=== PATIENT | female | born 1975 | race Caucasian/White ===

== ENCOUNTER 2016-09-16 10:24 | Inpatient (IN) | payer MEDICAID, SELFPAY ==
--- NOTE | 2016-09-16 11:09 | EDM.PDOC ---
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 She is nauseated but not vomiting, has pain with breathing but is not short of breath. No fevers or chills. No previous similar pains and no history of surgeries. She went over to the clinic to be evaluated and they sent her to the emergency room because she was "in so much pain". She has a very good assistant produce manager who was present with the patient for 10 minutes but had to leave for her own clinic appointment. Onset: Gradual (Pain developed over the past 12-24 hours) Location: Reports: Chest, Abdomen (Right upper quadrant abdomen and right lower anterior chest) Quality: Reports: Ache, Pressure, Sharp Severity: Moderate Worsens with: Reports: Movement (Hurts to move and hurts to take a deep breath) Associated Symptoms: Denies: Fever/Chills, Headaches, Loss of Appetite, Shortness of Breath (She is not short of breath but has pain with breathing) Right Breast Pain Score (Numeric/FACES): 10 Right Chest Pain Score (Numeric/FACES): 10 - Related Data Allergies Allergy/AdvReac Type Severity Reaction Status Date / Time No Known Allergies Allergy Verified 07/01/13 23:26 Home Meds: Home Meds NK [No Known Home Meds] 09/16/16 [History] Past Medical History - Past Health History Medical/Surgical History: Denies Medical/Surgical History Social & Family History - Recreational Drug Use Recreational Drug Use: No ED ROS GENERAL - Review of Systems Review Of Systems: See Below Constitutional: Denies: Fever, Chills HEENT: Reports: No Symptoms Respiratory: Reports: Pleuritic Chest Pain (Right anterior chest and upper right abdomen) Cardiovascular: Denies: Palpitations GI/Abdominal: Reports: Abdominal Pain, Nausea. Denies: Vomiting : Reports: No Symptoms Skin: Reports: No Symptoms Neurological: Reports: No Symptoms Psychiatric: Reports: No Symptoms ED EXAM, GENERAL - Physical Exam Exam: See Below Exam Limited By: Language Barrier General Appearance: Alert, No Apparent Distress (Patient is not distressed but does look uncomfortable) Respiratory/Chest: No Respiratory Distress, Lungs Clear, Decreased Breath Sounds (She did have some mild decreased breath sounds at the right base posteriorly.) Cardiovascular: Regular Rate, Rhythm GI/Abdominal: Tender (Patient reacts with tenderness to palpation of the right upper quadrant, much less pain with palpation of the chest wall) Neurological: Alert, Oriented Skin Exam: Warm, Dry, No Rash (There is no abnormality of the skin overlying the painful area) Course - Vital Signs Last Recorded V/S: Last Vital Signs Temp 99.1 F 09/16/16 14:52 Pulse 99 09/16/16 14:52 Resp 24 H 09/16/16 14:52 BP 111/64 09/16/16 14:52 Pulse Ox 91 L 09/16/16 14:52 - Orders/Labs/Meds Orders: Active Orders 24 hr Category Date Time Status CULTURE BLOOD [BC] Urgent Lab 09/16/16 12:25 Received CULTURE BLOOD [BC] Urgent Lab 09/16/16 12:30 Received Blood Culture x2 Reflex Set [OM.PC] Urgent Oth 09/16/16 12:20 Ordered Medication Orders Acetaminophen (Tylenol) 650 mg PO Q4H PRN PRN Reason: Pain (Mild 1-3)/fever Last Admin: 09/16/16 15:55 Dose: 650 mg Albuterol (Proventil Neb Soln) 2.5 mg NEB Q4H PRN PRN Reason: Shortness Of Breath/wheezing Docusate Sodium (Colace) 100 mg PO BID PRN PRN Reason: Constipation Azithromycin 500 mg/ Sodium (Chloride) 250 mls @ 250 mls/hr IV Q24H ARCELIA Last Admin: 09/16/16 15:56 Dose: 250 mls/hr Sodium Chloride (Normal Saline) 1,000 mls @ 125 mls/hr IV ASDIRECTED ARCELIA Ceftriaxone Sodium 1 gm/ (Sodium Chloride) 50 mls @ 100 mls/hr IV Q24H ARCLEIA Magnesium Hydroxide (Milk Of Magnesia) 30 ml PO Q12H PRN PRN Reason: Constipation Polyethylene Glycol (Miralax) 17 gm PO DAILY PRN PRN Reason: Constipation Sodium Chloride (Saline Flush) 10 ml FLUSH ASDIRECTED PRN PRN Reason: Keep Vein Open Labs: Laboratory Tests 09/16/16 09/16/16 09/16/16 Range/Units 11:02 11:02 12:30 WBC 21.9 H (4.5-11.0) K/uL RBC 3.81 (3.30-5.50) M/uL Hgb 11.1 L (12.0-15.0) g/dL Hct 32.9 L (36.0-48.0) % MCV 86 (80-98) fL MCH 29 (27-31) pg MCHC 34 (32-36) % Plt Count 260 (150-400) K/uL Add Manual Diff Yes Neutrophils % (Manual) 73 H (36-66) % Band Neutrophils % 18 H (5-11) % Lymphocytes % (Manual) 5 L (24-44) % Monocytes % (Manual) 4 (2-6) % Sodium 133 L (140-148) mmol/L Potassium 2.9 L* (3.6-5.2) mmol/L Chloride 100 (100-108) mmol/L Carbon Dioxide 22 (21-32) mmol/L Anion Gap 13.9 (5.0-14.0) mmol/L BUN 7 (7-18) mg/dL Creatinine 0.5 L (0.6-1.0) mg/dL Est Cr Clr Drug Dosing 108.50 mL/min Estimated GFR (MDRD) > 60 (>60) Glucose 112 H (74-106) mg/dL Lactic Acid 1.5 (0.4-2.0) mmol/L Calcium 8.1 L (8.5-10.1) mg/dL Total Bilirubin 0.9 (0.2-1.0) mg/dL AST 11 L (15-37) U/L ALT 9 L (12-78) U/L Alkaline Phosphatase 82 (46-116) U/L Total Protein 7.3 (6.4-8.2) g/dL Albumin 2.5 L (3.4-5.0) g/dL Globulin 4.8 H (2.3-3.5) g/dL Albumin/Globulin Ratio 0.5 L (1.2-2.2) Lipase 49 L (73-393) U/L Meds: Medications Generic Name Dose Route Start Last Admin Trade Name Freq PRN Reason Stop Dose Admin Acetaminophen 650 mg 09/16/16 15:03 09/16/16 15:55 Tylenol PO 650 mg Q4H PRN Administration Pain (Mild 1-3)/fever Albuterol 2.5 mg 09/16/16 15:03 Proventil Neb Soln NEB Q4H PRN Shortness Of Breath/wheezing Docusate Sodium 100 mg 09/16/16 15:03 Colace PO BID PRN Constipation Azithromycin 500 mg/ Sodium 250 mls @ 250 mls/hr 09/16/16 16:00 09/16/16 15: 56 Chloride IV 250 mls/hr Q24H ARCELIA Administration Sodium Chloride 1,000 mls @ 125 mls/hr 09/16/16 15:03 Normal Saline IV ASDIRECTED ARCELIA Ceftriaxone Sodium 1 gm/ 50 mls @ 100 mls/hr 09/17/16 14:00 Sodium Chloride IV Q24H ARCELIA Magnesium Hydroxide 30 ml 09/16/16 15:03 Milk Of Magnesia PO Q12H PRN Constipation Polyethylene Glycol 17 gm 09/16/16 15:03 Miralax PO DAILY PRN Constipation Sodium Chloride 10 ml 09/16/16 15:03 Saline Flush FLUSH ASDIRECTED PRN Keep Vein Open Discontinued Medications Generic Name Dose Route Start Last Admin Trade Name Freq PRN Reason Stop Dose Admin Hydromorphone HCl 0.5 mg 09/16/16 14:12 09/16/16 14:16 Dilaudid IVPUSH 09/16/16 14:13 0.5 mg ONETIME ONE Administration Sodium Chloride 1,000 mls @ 200 mls/hr 09/16/16 12:15 09/16/16 12:22 Normal Saline IV 200 mls/hr ASDIRECTED ARCELIA Administration Ceftriaxone Sodium 2 gm/ 50 mls @ 100 mls/hr 09/16/16 13:00 09/16/16 13:12 Sodium Chloride IV 09/16/16 13:29 100 mls/hr ONETIME ONE Administration - Re-Assessments/Exams Free Text/Narrative Re-Assessment/Exam: 09/16/16 11:08 CBC, lipase, CMP was obtained and an ultrasound of the right upper quadrant will likely be necessary. 09/16/16 11:43 Lipase was normal, white count was elevated at 22,000, CMP was generally unremarkable other than a low potassium at 2.9. The avionics technician felt her pain was more in the flank area, and had a negative Ness sign. Patient was then sent for a shielded two-view chest x-ray due to the . Two-view chest x-ray showed almost complete opacification of the right middle lobe. An IV was started and the hospitalist will be consulted for possible admission. 09/16/16 13:01 Lactic acid was drawn and was normal at 1.5, blood cultures were also obtained. Using Doppler a normal sounding heart tone was obtained, and repeat vitals were reassuring with a normal pulse and blood pressure. Dr. Verde agreed to accept the patient as an inpatient for treatment of pneumonia. 2 g of Rocephin was started. Departure - Departure Time of Disposition: 14:31 Disposition: Admitted As Inpatient 68 Condition: fair Clinical Impression: Pneumonia, Hypokalemia, Intrauterine - Discharge Information - My Orders Last 24 Hours: My Active Orders 09/16/16 12:20 Blood Culture x2 Reflex Set [OM.PC] Urgent 09/16/16 12:25 CULTURE BLOOD [BC] Urgent 09/16/16 12:30 CULTURE BLOOD [BC] Urgent - Assessment/Plan Last 24 Hours: My Active Orders 09/16/16 12:20 Blood Culture x2 Reflex Set [OM.PC] Urgent 09/16/16 12:25 CULTURE BLOOD [BC] Urgent 09/16/16 12:30 CULTURE BLOOD [BC] Urgent
--- NOTE | 2016-09-16 12:04 | CR ---
Heart size within normal limits. Left lung clear. Dense consolidative change within the right lower lobe with air bronchograms indicative of right lower lobe pneumonia. Findings discussed with Dr. Maricel clay.
[2016-09-16] MEDS ORDERED: Sodium Chloride 0.9% 1,000 ML IV SCH (12:15)
[2016-09-16] MEDS ORDERED: cefTRIAXone 2 GM in Sodium Chloride 0.9% 50 ML IV ONE (13:00)
--- NOTE | 2016-09-16 13:29 | US ---
Ultrasound abdomen Limited. Findings: Findings: Liver is homogeneous. Gallbladder 0.5 cm. Negative sonographic Ness sign. No s tones. No wall thickening. Common bile duct within normal limits. Pancreas where visualized is unrem arkable. Right kidney 11.6 cm. No hydronephrosis. No hydronephrosis. IVC was not well visualized. No ascites fluid impression: 1. Unremarkable right upper quadrant ultrasound
[2016-09-16] MEDS ORDERED: HYDROmorphone 0.5 MG/0.5 ML Syringe IVPUSH ONE (14:12)
[2016-09-16] MEDS ORDERED: Magnesium Hydroxide 400 MG/5 ML Susp 30 ML Cup PO PRN (15:03)
[2016-09-16] MEDS ORDERED: Albuterol 0.083% 2.5 MG/3 ML Neb Soln NEB PRN (15:03)
[2016-09-16] MEDS ORDERED: Docusate Sodium 100 MG Cap PO PRN (15:03)
[2016-09-16] MEDS ORDERED: Polyethylene Glycol 3350 Powder 17 GM Packet PO PRN (15:03)
[2016-09-16] MEDS ORDERED: Sodium Chloride 0.9% 10 ML Syringe FLUSH PRN (15:03)
[2016-09-16] MEDS: Acetaminophen 325 MG Tab PO PRN (15:55)
[2016-09-16] MEDS: Azithromycin 500 MG in Sodium Chloride 0.9% 250 ML IV SCH (15:56)
[2016-09-16] MEDS ORDERED: Potassium Chloride 40 MEQ in Premix Bag 1 BAG IV ONE (16:26)
[2016-09-16] MEDS ORDERED: Potassium Chloride 20 MEQ Tab.ER PO ONE (17:00)
[2016-09-16] MEDS: HYDROmorphone 0.5 MG/0.5 ML Syringe IVPUSH PRN ×3 (17:03→23:31)
[2016-09-16] MEDS: Potassium Chloride 20 MEQ, Lidocaine 1% 2 ML in Sodium Chloride 0.9% 100 ML IV SCH ×2 (17:37→20:08)
[2016-09-16] MEDS: Sodium Chloride 0.9% 1,000 ML IV SCH (17:37)
--- NOTE | 2016-09-16 19:00 | PCM.HP ---
H&P History of Present Illness - General Date of Service: 09/16/16 Admit Problem/Dx: Admission Diagnosis/Problem Admission Diagnosis/Problem Pneumonia Source of Information: Patient, Provider, RN Notes Reviewed - History of Present Illness Initial Comments - Free Text/Narative: This patient is a 41-year-old woman who is admitted through the emergency department for further evaluation and management of right lung pneumonia. She' s had recent symptoms of increased shortness of breath as well as fairly severe right chest pleuritic pain. On evaluation emergency room department she has an obvious infiltrate in the right middle lobe with an elevated white blood cell count. Lactic acid level is normal, no other evidence of significant sepsis. Right Breast Pain Score (Numeric/FACES): 10 Right Chest Pain Score (Numeric/FACES): 10 - Related Data Allergies/Adverse Reactions: Allergies Allergy/AdvReac Type Severity Reaction Status Date / Time No Known Allergies Allergy Verified 07/01/13 23:26 Home Medications: Home Meds NK [No Known Home Meds] 09/16/16 [History] Past Medical History - Past Health History Medical/Surgical History: Denies Medical/Surgical History Social & Family History - Tobacco Use Smoking Status *Q: Unknown Ever Smoked - Caffeine Use Caffeine Use: Reports: None - Recreational Drug Use Recreational Drug Use: No H&P Review of Systems - Review of Systems: Review Of Systems: See Below HEENT: Reports: No Symptoms Pulmonary: Reports: Shortness of Breath, Pleuritic Chest Pain, Cough. Denies: Wheezing, Sputum, Hemoptysis Cardiovascular: Reports: No Symptoms Gastrointestinal: Reports: No Symptoms Genitourinary: Reports: No Symptoms Musculoskeletal: Reports: No Symptoms Skin: Reports: No Symptoms Psychiatric: Reports: No Symptoms Neurological: Reports: No Symptoms Hematologic/Lymphatic: Reports: No Symptoms Immunologic: Reports: No Symptoms Exam - Exam Exam: See Below - Vital Signs Vital Signs: Last Vital Signs Temp 97.9 F 09/16/16 18:12 Pulse 100 09/16/16 18:12 Resp 18 09/16/16 18:12 BP 110/57 L 09/16/16 18:12 Pulse Ox 93 L 09/16/16 18:12 Weight: 143 lb 8.335 oz - Exam Quality Assessment: DVT Prophylaxis General: Alert, Oriented, Cooperative, Moderate Distress HEENT: Conjunctiva Clear, Hearing Intact, Mucosa Moist & [place], Nares Patent, Normal Nasal Septum, Posterior Pharynx Clear, Pupils Equal, Pupils Reactive Neck: Supple, Trachea Midline, +2 Carotid Pulse wo Bruit Lungs: Decreased Breath Sounds, Rales, Rhonchi. No: Crackles, Rub, Stridor, Wheezing Cardiovascular: Regular Rate, Regular Rhythm, Normal S1, Normal S2 Abdomen: Normal Bowel Sounds, Soft Back Exam: Normal Inspection, Full Range of Motion, NT Extremities: 3, Normal Inspection, 10 Skin: Warm, Dry, Intact Neurological: Cranial Nerves Intact, Strength Equal Bilateral, Normal Tone, Sensation Intact. No: Focal Deficit Neuro Extensive - Mental Status: Alert, Oriented x3, Normal Mood/Affect, Normal Cognition, Memory Intact - Patient Data Result Diagrams: 09/16/16 11:02 09/16/16 11:02 *Q Meaningful Use (ADM) - VTE *Q VTE Criteria *Q: - VTE Risk Assess *Q Each Risk Factor Represents 1 Point: or , Less than 1 Month Total Score 1 Point Risk Factors: 1 Each Risk Factor Represents 2 Points: None Total Score 2 Point Risk Factors: 0 Each Risk Factor Represents 3 Points: None Total Score 3 Point Risk Factors: 0 Each Risk Factor Represents 5 Points: None Total Score 5 Point Risk Factors: 0 Venous Thromboembolism Risk Factor Score *Q: 1 - Stroke *Q Stroke Criteria *Q: - AMI *Q AMI Criteria *Q: Problem List Initiated/Reviewed/Updated: Yes Orders Last 24hrs: Active Orders 24 hr Category Date Time Status Intake and Output [RC] QSHIFT Care 09/16/16 15:03 Active Notify Provider Vital Signs [RC] ASDIRECTED Care 09/16/16 15:03 Active Oxygen Therapy [RC] PRN Care 09/16/16 15:03 Active Peripheral IV Care [RC] . DIRECTED Care 09/16/16 15:03 Active RT Aerosol Therapy [RC] ASDIRECTED Care 09/16/16 15:03 Active Up With Assistance [RC] ASDIRECTED Care 09/16/16 15:03 Active VTE/DVT Education [RC] Per Unit Routine Care 09/16/16 15:03 Active Vital Signs [RC] Q4H Care 09/16/16 15:03 Active Regular Diet [DIET] Diet 09/16/16 Lunch Active BASIC METABOLIC PANEL,BMP [CHEM] AM Lab 09/17/16 05:11 Ordered CBC WITH AUTO DIFF [HEME] AM Lab 09/17/16 05:11 Ordered CULTURE RESPIRATORY + SMEAR [RM] Stat Lab 09/16/16 15:03 Uncollected Acetaminophen [Tylenol] Med 09/16/16 15:03 Active 650 mg PO Q4H PRN Albuterol [Proventil Neb Soln] Med 09/16/16 15:03 Active 2.5 mg NEB Q4H PRN Azithromycin [Zithromax] 500 mg Med 09/16/16 16:00 Active Sodium Chloride 0.9% [Normal Saline] 250 ml IV Q24H Docusate Sodium [Colace] Med 09/16/16 15:03 Active 100 mg PO BID PRN HYDROmorphone [Dilaudid] Med 09/16/16 16:24 Active 0.5 mg IVPUSH Q2H PRN Magnesium Hydroxide [Milk of Magnesia] Med 09/16/16 15:03 Active 30 ml PO Q12H PRN Polyethylene Glycol 3350 [MiraLAX] Med 09/16/16 15:03 Active 17 gm PO DAILY PRN Potassium Chloride 20 meq Med 09/16/16 17:00 Active Lidocaine 1% [Xylocaine 1%] 2 ml Sodium Chloride 0.9% [Normal Saline] 100 ml IV Q2H Sodium Chloride 0.9% [Normal Saline] 1,000 ml Med 09/16/16 15:03 Active IV ASDIRECTED Sodium Chloride 0.9% [Saline Flush] Med 09/16/16 15:03 Active 10 ml FLUSH ASDIRECTED PRN cefTRIAXone [Rocephin] 1 gm Med 09/17/16 14:00 Active Sodium Chloride 0.9% [Normal Saline] 50 ml IV Q24H Blood Culture x2 Reflex Set [OM.PC] Urgent Oth 09/16/16 15:03 Ordered Doppler Heart Tones [WOMSER] Routine Oth 09/16/16 18:53 Ordered Peripheral IV Insertion Adult [OM.PC] Routine Oth 09/16/16 15:03 Ordered Sequential Compression Device [OM.PC] Per Unit Routine Oth 09/16/16 15:03 Ordered Resuscitation Status Routine Resus Stat 09/16/16 13:26 Ordered Medication Orders Acetaminophen (Tylenol) 650 mg PO Q4H PRN PRN Reason: Pain (Mild 1-3)/fever Last Admin: 09/16/16 15:55 Dose: 650 mg Albuterol (Proventil Neb Soln) 2.5 mg NEB Q4H PRN PRN Reason: Shortness Of Breath/wheezing Docusate Sodium (Colace) 100 mg PO BID PRN PRN Reason: Constipation Hydromorphone HCl (Dilaudid) 0.5 mg IVPUSH Q2H PRN PRN Reason: Pain Last Admin: 09/16/16 17:03 Dose: 0.5 mg Azithromycin 500 mg/ Sodium (Chloride) 250 mls @ 250 mls/hr IV Q24H ARCELIA Last Admin: 09/16/16 15:56 Dose: 250 mls/hr Sodium Chloride (Normal Saline) 1,000 mls @ 125 mls/hr IV ASDIRECTED ARCELIA Last Admin: 09/16/16 17:37 Dose: 125 mls/hr Ceftriaxone Sodium 1 gm/ (Sodium Chloride) 50 mls @ 100 mls/hr IV Q24H ARCELIA Potassium Chloride 20 meq/Lidocaine HCl 2 ml/ Sodium Chloride 112 mls @ 56 mls/ hr IV Q2H ARCELIA Stop: 09/16/16 20:59 Last Admin: 09/16/16 17:37 Dose: 56 mls/hr Magnesium Hydroxide (Milk Of Magnesia) 30 ml PO Q12H PRN PRN Reason: Constipation Polyethylene Glycol (Miralax) 17 gm PO DAILY PRN PRN Reason: Constipation Sodium Chloride (Saline Flush) 10 ml FLUSH ASDIRECTED PRN PRN Reason: Keep Vein Open Assessment/Plan Comment:: ASSESSMENT AND PLAN RIGHT LUNG PNEUMONIA-obvious infiltrate on chest x-ray with elevation in white blood cell count. Normal lactic acid level, initial heart rate and blood pressure were borderline but have improved with IV fluids. -Blood and sputum culture pending -IV fluids for hydration -Supplemental oxygen as needed -IV pain medication as needed for pleuritic pain -IV antibiotic therapy using Rocephin and azithromycin. 4 MONTHS- heart tones were checked in the emergency department and are within normal range -Monitor heart tones regularly during hospital stay -Consult obstetrical service for any related abnormalities MAINTENANCE ISSUES -DVT prophylaxis; SCUDs -GI prophylaxis; not required -Gracia catheter; not indicated -Nutrition; regular diet -Nicotine dependence; not required CODE STATUS-FULL CODE ADMISSION STATUS-patient will be admitted to inpatient status, expect at least a 2 night hospital stay for evaluation and management of problems as outlined above. At the time of this admission I do not reasonably expected evaluation and management of this problem will require more than a 96 hour hospital stay. DISPOSITION-anticipate discharge to home after the hospital stay. PRIMARY CARE PROVIDER-Jackie Colbert
[2016-09-17] MEDS: Acetaminophen 325 MG Tab PO PRN ×3 (01:48→20:36)
[2016-09-17] MEDS: Sodium Chloride 0.9% 1,000 ML IV SCH ×2 (01:53→12:42)
[2016-09-17] MEDS: HYDROmorphone 0.5 MG/0.5 ML Syringe IVPUSH PRN ×2 (05:40→10:38)
[2016-09-17] MEDS ORDERED: Sodium Chloride 0.9% 1,000 ML IV SCH ×2 (08:30→17:00)
[2016-09-17] MEDS ORDERED: cefTRIAXone 1 GM in Sodium Chloride 0.9% 50 ML IV SCH (14:00)
[2016-09-17] MEDS: Azithromycin 500 MG in Sodium Chloride 0.9% 250 ML IV SCH (15:38)
--- NOTE | 2016-09-17 16:55 | PCM.PN ---
- General Info Date of Service: 09/17/16 Functional Status: Reports: pain controlled, tolerating diet, ambulating, urinating - Review of Systems General: Denies: Fever, Chills Pulmonary: Reports: shortness of breath, cough. Denies: pleuritic chest pain, sputum, hemoptysis, wheezing Cardiovascular: Reports: Dyspnea on Exertion. Denies: Chest Pain, Palpitations , Orthopnea, PND, Edema Gastrointestinal: Reports: No symptoms Systems Review Comment:: This patient has been stable since admission, blood pressures have trended somewhat low but this is thought to be secondary to her . Signs have otherwise been stable and she has remained afebrile. Pleuritic pain that she experienced yesterday has significantly improved, she also reports less shortness of breath and cough. White blood cell count remains moderately elevated but has improved since admission. - Patient Data Vitals - most recent: Last Vital Signs Temp 96.5 F 09/17/16 15:45 Pulse 77 09/17/16 15:45 Resp 16 09/17/16 15:45 BP 95/55 L 09/17/16 15:45 Pulse Ox 98 09/17/16 15:45 Weight - most recent: 143 lb 8.335 oz I&O - last 24 hours: Intake & Output 09/17/16 09/17/16 09/17/16 06:59 14:59 22:59 Intake Total 1729 1360 Output Total 400 0 Balance 1329 1360 Lab Results last 24 hrs: Laboratory Results - last 24 hr 09/17/16 09/17/16 Range/Units 05:55 05:55 WBC 14.2 H (4.5-11.0) K/uL RBC 3.27 L (3.30-5.50) M/uL Hgb 9.7 L (12.0-15.0) g/dL Hct 28.9 L (36.0-48.0) % MCV 88 (80-98) fL MCH 30 (27-31) pg MCHC 34 (32-36) % Plt Count 242 (150-400) K/uL Neut % (Auto) 86 H (36-66) % Lymph % (Auto) 9 L (24-44) % [place] % (Auto) 4 (2-6) % Eos % (Auto) 1 L (2-4) % Baso % (Auto) 0 (0-1) % Sodium 138 L (140-148) mmol/L Potassium 3.7 (3.6-5.2) mmol/L Chloride 108 (100-108) mmol/L Carbon Dioxide 21 (21-32) mmol/L Anion Gap 12.7 (5.0-14.0) mmol/L BUN 6 L (7-18) mg/dL Creatinine 0.4 L (0.6-1.0) mg/dL Est Cr Clr Drug Dosing 135.63 mL/min Estimated GFR (MDRD) > 60 (>60) Glucose 82 (74-106) mg/dL Calcium 7.7 L (8.5-10.1) mg/dL Med Orders - Current: Current Medications Acetaminophen (Tylenol) 650 mg PO Q4H PRN PRN Reason: Pain (Mild 1-3)/fever Last Admin: 09/17/16 10:38 Dose: 650 mg Albuterol (Proventil Neb Soln) 2.5 mg NEB Q4H PRN PRN Reason: Shortness Of Breath/wheezing Docusate Sodium (Colace) 100 mg PO BID PRN PRN Reason: Constipation Hydromorphone HCl (Dilaudid) 0.5 mg IVPUSH Q2H PRN PRN Reason: Pain Last Admin: 09/17/16 10:38 Dose: 0.5 mg Azithromycin 500 mg/ Sodium (Chloride) 250 mls @ 250 mls/hr IV Q24H [facility] Last Admin: 09/17/16 15:38 Dose: 250 mls/hr Ceftriaxone Sodium 1 gm/ (Sodium Chloride) 50 mls @ 100 mls/hr IV Q24H [facility] Last Admin: 09/17/16 14:18 Dose: 100 mls/hr Sodium Chloride (Normal Saline) 1,000 mls @ 50 mls/hr IV ASDIRECTED [facility] Magnesium Hydroxide (Milk Of Magnesia) 30 ml PO Q12H PRN PRN Reason: Constipation Polyethylene Glycol (Miralax) 17 gm PO DAILY PRN PRN Reason: Constipation Sodium Chloride (Saline Flush) 10 ml FLUSH ASDIRECTED PRN PRN Reason: Keep Vein Open Discontinued Medications Hydromorphone HCl (Dilaudid) 0.5 mg IVPUSH ONETIME ONE Stop: 09/16/16 14:13 Last Admin: 05/30/17 14:16 Dose: 0.5 mg Sodium Chloride (Normal Saline) 1,000 mls @ 200 mls/hr IV ASDIRECTED [facility] Last Admin: 09/16/16 12:22 Dose: 200 mls/hr Ceftriaxone Sodium 2 gm/ (Sodium Chloride) 50 mls @ 100 mls/hr IV ONETIME ONE Stop: 09/16/16 13:29 Last Admin: 09/16/16 13:12 Dose: 100 mls/hr Sodium Chloride (Normal Saline) 1,000 mls @ 125 mls/hr IV ASDIRECTED [facility] Last Admin: 09/17/16 12:42 Dose: 125 mls/hr Potassium Chloride 20 meq/Lidocaine HCl 2 ml/ Sodium Chloride 112 mls @ 56 mls/ hr IV Q2H [facility] Stop: 09/16/16 20:59 Last Admin: 09/16/16 20:08 Dose: 56 mls/hr Sodium Chloride (Normal Saline) 1,000 mls @ 500 mls/hr IV ASDIRECTED [facility] Stop: 09/17/16 09:31 Last Admin: 09/17/16 09:00 Dose: 500 mls/hr Potassium Chloride (Klor-Con M20) 40 meq PO ONETIME ONE Stop: 09/16/16 17:01 Last Admin: 09/16/16 17:42 Dose: 40 meq - Exam Quality Assessment: DVT prophylaxis General: alert, oriented, cooperative, mild distress Lungs: Decreased breath sounds, Rhonchi. No: Crackles, Rales, Rub, Stridor, Wheezing Cardiovascular: Regular Rate, Regular Rhythm, No Murmurs Abdomen: bowel sounds present, soft, no tenderness, no distension Extremities: no edema Skin: warm, dry, intact - Problem List Review Problem List Initiated/Reviewed/Updated: Yes - My Orders Last 24 Hours: My Active Orders 09/16/16 16:00 Azithromycin [Zithromax] 500 mg Sodium Chloride 0.9% [Normal Saline] 250 ml IV Q24H 09/16/16 16:24 HYDROmorphone [Dilaudid] 0.5 mg IVPUSH Q2H PRN 09/16/16 18:53 Doppler Heart Tones [WOMSER] Routine 09/16/16 20:28 RT Acapella [RESPCARE] Routine 09/17/16 14:00 cefTRIAXone [Rocephin] 1 gm Sodium Chloride 0.9% [Normal Saline] 50 ml IV Q24H 09/17/16 17:00 Sodium Chloride 0.9% @ 50 MLS/HR(1000ml) Sodium Chloride 0.9% [Normal Saline] 1 ,000 ml IV ASDIRECTED 09/18/16 05:00 BASIC METABOLIC PANEL,BMP [CHEM] Timed CBC WITH AUTO DIFF [HEME] Timed - Plan Plan:: ASSESSMENT AND PLAN RIGHT LUNG PNEUMONIA-obvious infiltrate on chest x-ray with elevation in white blood cell count. Stable since admission with improvement in white blood cell count, shortness of breath, pleuritic pain, and cough. -Blood and sputum culture pending -IV fluids for hydration, decrease rate to 50 mL per hour -Supplemental oxygen as needed -IV pain medication as needed for pleuritic pain -IV antibiotic therapy using Rocephin and azithromycin. 4 MONTHS- heart tones have remained stable -Monitor heart tones regularly during hospital stay -Consult obstetrical service for any related abnormalities MAINTENANCE ISSUES -DVT prophylaxis; SCUDs -GI prophylaxis; not required -Gracia catheter; not indicated -Nutrition; regular diet -Nicotine dependence; not required CODE STATUS-FULL CODE ADMISSION STATUS-patient will be admitted to inpatient status, expect at least a 2 night hospital stay for evaluation and management of problems as outlined above. At the time of this admission I do not reasonably expected evaluation and management of this problem will require more than a 96 hour hospital stay. DISPOSITION-anticipate discharge to home after the hospital stay. PRIMARY CARE PROVIDER-Jackie Colbert
[2016-09-18] MEDS: Acetaminophen 325 MG Tab PO PRN ×2 (05:23→11:23)
[2016-09-18] MEDS: HYDROmorphone 0.5 MG/0.5 ML Syringe IVPUSH PRN (08:34)
[2016-09-18] MEDS ORDERED: Potassium Chloride 20 MEQ Tab.ER PO ONE (09:00)
[2016-09-18 10:20] VITALS: BP 107/72
--- NOTE | 2016-09-18 13:06 | PCM.DCSUM1 ---
Discharge Summary - Hospital Course Brief History: This patient is a 41-year-old woman who is admitted through the emergency department with severe right-sided pleuritic pain secondary to pneumonia. - Discharge Data Discharge Date: 09/18/16 Discharge Disposition: Home, Self-Care 01 Condition: Good - Discharge Diagnosis/Problem(s) (1) Intrauterine SNOMED Code(s): 58990584 ICD Code: Z33.1 - STATE, INCIDENTAL Status: Acute Current Visit : Yes (2) Pneumonia SNOMED Code(s): 440409022 ICD Code: J18.9 - PNEUMONIA, UNSPECIFIED ORGANISM Status: Acute Current Visit: Yes - Patient Summary/Data Hospital Course: Ms. Ching is a 41-year-old woman who is 4 months . She developed significant pleuritic pain in her right chest and presented to the emergency department for further evaluation. White blood cell count was elevated and she was found to have a right middle lobe infiltrate on chest x-ray. There was no evidence of sepsis or significant respiratory compromise. Blood cultures were obtained at the time of admission as well as sputum cultures and remain negative throughout her hospital stay. She was given IV fluids for hydration and started on IV antibiotic therapy for community-acquired pneumonia with Rocephin and azithromycin. She did well with this management and had no further significant temperature elevations, with normalization of her white blood cell count. She will be discharged home on oral antibiotic therapy with an additional 3 days of azithromycin in 5 days of Omnicef. Activity will be as tolerated and she will resume her usual diet. Followup appointment will be scheduled with her primary care provider Jackie Colbert within one week. Chest x-ray should be obtained at the time of followup appointment. - Patient Instructions Diet: Usual Diet as Tolerated Activity: As Tolerated Other/Special Instructions: Schedule followup visit with Jackie Colbert within one week. Schedule chest x-ray at the time of followup appointment. - Discharge Plan Prescriptions/Med Rec: Azithromycin [IJD: Azithromycin] 250 mg PO DAILY #3 tab Cefdinir [Omnicef] 300 mg PO BID #10 cap Home Medications: Home Meds Azithromycin [IJD: Azithromycin] 250 mg PO DAILY #3 tab 09/18/16 [Rx] Cefdinir [Omnicef] 300 mg PO BID #10 cap 09/18/16 [Rx] Referrals: Jackie Colbert CNM [Primary Care Provider] - - Patient Data Vitals - Most Recent: Last Vital Signs Temp 96.4 F 09/18/16 10:15 Pulse 69 09/18/16 10:15 Resp 16 09/18/16 10:15 BP 107/72 09/18/16 10:15 Pulse Ox 99 09/18/16 10:15 Weight - Most Recent: 143 lb 8.335 oz I&O - Last 24 hours: Intake & Output 09/17/16 09/18/16 09/18/16 22:59 06:59 14:59 Intake Total 1113 855 Output Total 400 Balance 1113 455 Lab Results - Last 24 hrs: Laboratory Results - last 24 hr 09/18/16 09/18/16 Range/Units 05:00 05:00 WBC 5.9 (4.5-11.0) K/uL RBC 3.35 (3.30-5.50) M/uL Hgb 9.9 L (12.0-15.0) g/dL Hct 29.5 L (36.0-48.0) % MCV 88 (80-98) fL MCH 30 (27-31) pg MCHC 34 (32-36) % Plt Count 277 (150-400) K/uL Neut % (Auto) 63 (36-66) % Lymph % (Auto) 28 (24-44) % [place] % (Auto) 6 (2-6) % Eos % (Auto) 2 (2-4) % Baso % (Auto) 1 (0-1) % Sodium 140 (140-148) mmol/L Potassium 3.4 L (3.6-5.2) mmol/L Chloride 108 (100-108) mmol/L Carbon Dioxide 21 (21-32) mmol/L Anion Gap 14.4 H (5.0-14.0) mmol/L BUN 7 (7-18) mg/dL Creatinine 0.4 L (0.6-1.0) mg/dL Est Cr Clr Drug Dosing 135.63 mL/min Estimated GFR (MDRD) > 60 (>60) Glucose 83 (74-106) mg/dL Calcium 7.8 L (8.5-10.1) mg/dL Med Orders - Current: Current Medications Acetaminophen (Tylenol) 650 mg PO Q4H PRN PRN Reason: Pain (Mild 1-3)/fever Last Admin: 09/18/16 11:23 Dose: 650 mg Albuterol (Proventil Neb Soln) 2.5 mg NEB Q4H PRN PRN Reason: Shortness Of Breath/wheezing Docusate Sodium (Colace) 100 mg PO BID PRN PRN Reason: Constipation Hydromorphone HCl (Dilaudid) 0.5 mg IVPUSH Q2H PRN PRN Reason: Pain Last Admin: 09/18/16 08:34 Dose: 0.5 mg Azithromycin 500 mg/ Sodium (Chloride) 250 mls @ 250 mls/hr IV Q24H [facility] Last Admin: 09/17/16 15:38 Dose: 250 mls/hr Ceftriaxone Sodium 1 gm/ (Sodium Chloride) 50 mls @ 100 mls/hr IV Q24H [facility] Last Admin: 09/17/16 14:18 Dose: 100 mls/hr Sodium Chloride (Normal Saline) 1,000 mls @ 50 mls/hr IV ASDIRECTED [facility] Last Admin: 09/18/16 05:23 Dose: 50 mls/hr Magnesium Hydroxide (Milk Of Magnesia) 30 ml PO Q12H PRN PRN Reason: Constipation Polyethylene Glycol (Miralax) 17 gm PO DAILY PRN PRN Reason: Constipation Sodium Chloride (Saline Flush) 10 ml FLUSH ASDIRECTED PRN PRN Reason: Keep Vein Open Discontinued Medications Hydromorphone HCl (Dilaudid) 0.5 mg IVPUSH ONETIME ONE Stop: 09/16/16 14:13 Last Admin: 09/16/16 14:16 Dose: 0.5 mg Sodium Chloride (Normal Saline) 1,000 mls @ 200 mls/hr IV ASDIRECTED [facility] Last Admin: 09/16/16 12:22 Dose: 200 mls/hr Ceftriaxone Sodium 2 gm/ (Sodium Chloride) 50 mls @ 100 mls/hr IV ONETIME ONE Stop: 09/16/16 13:29 Last Admin: 09/16/16 13:12 Dose: 100 mls/hr Sodium Chloride (Normal Saline) 1,000 mls @ 125 mls/hr IV ASDIRECTED [facility] Last Admin: 09/17/16 12:42 Dose: 125 mls/hr Potassium Chloride 20 meq/Lidocaine HCl 2 ml/ Sodium Chloride 112 mls @ 56 mls/ hr IV Q2H [facility] Stop: 09/16/16 20:59 Last Admin: 09/16/16 20:08 Dose: 56 mls/hr Sodium Chloride (Normal Saline) 1,000 mls @ 500 mls/hr IV ASDIRECTED [facility] Stop: 09/17/16 09:31 Last Admin: 09/17/16 09:00 Dose: 500 mls/hr Potassium Chloride (Klor-Con M20) 40 meq PO ONETIME ONE Stop: 09/16/16 17:01 Last Admin: 09/16/16 17:42 Dose: 40 meq Potassium Chloride (Klor-Con M20) 40 meq PO ONETIME ONE Stop: 09/18/16 09:01 Last Admin: 09/18/16 11:24 Dose: 40 meq *Q Meaningful Use (DIS) - VTE *Q VTE Criteria *Q: - Stroke *Q Stroke Criteria *Q: - AMI *Q AMI Criteria *Q:
== END 2016-09-18 14:00 | disposition home or self-care (01) | DRG 781 ==
LOC: JP.ED 10:24 → JP.MS 13:25
PROVIDERS: ADMIT Hospitalist; ATTEND Hospitalist
DX: O99.512 Diseases of the respiratory system complicating pregnancy, second trimester (principal); J18.9 Pneumonia, unspecified organism; Z3A.00 Weeks of gestation of pregnancy not specified; O26.892 Other specified pregnancy related conditions, second trimester; E87.6 Hypokalemia
CPT/HCPCS: 36415; 71020; 71020-26; 76705; 76705-26; 80048; 80053; 83605; 83690; 85025; 87040; 87070; 87205; 94667; 96365; 96375; 99285-25; A9270-GY; J0456; J0696; J1170; J3480; J7030; J7040; J7050

== ENCOUNTER 2017-03-04 22:47 | Inpatient (IN) | payer MEDICAID ==
[2017-03-04] MEDS ORDERED: Lactated Ringers 1,000 ML IV ONE (23:35)
[2017-03-04] MEDS ORDERED: Sodium Chloride 0.9% 1,000 ML IV ONE (23:35)
[2017-03-05] MEDS ORDERED: fentaNYL 100 MCG/2 ML SDV ONE (00:37)
[2017-03-05] MEDS ORDERED: Ropivacaine 100 ML ONE (00:40)
[2017-03-05] MEDS ORDERED: Acetaminophen 325 MG Tab PO PRN (00:41)
[2017-03-05] MEDS ORDERED: Ondansetron 4 MG Tab.DIS PO PRN (00:41)
[2017-03-05] MEDS ORDERED: Sodium Chloride 0.9% 10 ML Syringe FLUSH PRN (00:41)
[2017-03-05] MEDS ORDERED: fentaNYL 100 MCG/2 ML SDV IVPUSH ONE (00:43)
--- NOTE | 2017-03-05 00:51 | PCM.LDHP ---
L&D History of Present Illness - General Date of Service: 03/05/17 (labor) Admit Problem/Dx: Patient Status Order with Admit Dx/Problem 03/05/17 00:41 Patient Status [ADT] Routine Admission Diagnosis/Problem Admission Diagnosis/Problem and not yet delivered Source of Information: Patient History Limitations: Reports: No Limitations - History of Present Illness Introduction:: 41 year old who is 39 1/7 weeks presented in active labor. Onset of contractions midday yesterday, intensified this evening presented at 2300. No leaking of fluid. GBS neg, ABO O pos, HIV neg, Rubella immune Timing/Duration: Reports: minutes: (3) Location, : Reports: Abdomen Quality: Reports: Pressure Severity: Moderate Improves with: Reports: None Worsens with: Reports: None - Related Data Allergies/Adverse Reactions: Allergies Allergy/AdvReac Type Severity Reaction Status Date / Time No Known Allergies Allergy Verified 07/01/13 23:26 Home Medications: Home Meds Vit W-Ca,Fe,FA(<1 mg) [ Vitamins] 1 each PO DAILY 03/05/17 [ History] Past Medical History - Past Health History Medical/Surgical History: Denies Medical/Surgical History HEENT History: Reports: None Cardiovascular History: Reports: None [employer] History: Reports: : 5 Para: 4 LMP (Approximate): (RUPAL 03/10/17) - Past Surgical History Head Surgeries/Procedures: Reports: None HEENT Surgical History: Reports: None Social & Family History - Tobacco Use Smoking Status *Q: Unknown Ever Smoked - Caffeine Use Caffeine Use: Reports: None - Recreational Drug Use Recreational Drug Use: No H&P Review of Systems - Review of Systems: Review Of Systems: See Below General: Reports: No Symptoms HEENT: Reports: No Symptoms Pulmonary: Reports: No Symptoms Cardiovascular: Reports: No Symptoms Gastrointestinal: Reports: No Symptoms Genitourinary: Reports: No Symptoms Musculoskeletal: Reports: No Symptoms Skin: Reports: No Symptoms Psychiatric: Reports: No Symptoms Neurological: Reports: No Symptoms Hematologic/Lymphatic: Reports: No Symptoms Immunologic: Reports: No Symptoms L&D Exam - Exam Exam: See Below - Vital Signs Vital Signs: Last Vital Signs Temp 98.4 F 03/04/17 23:01 Pulse 71 03/04/17 23:01 Resp 18 03/04/17 23:01 BP 127/61 03/04/17 23:01 Pulse Ox Weight: 154 lb - OB Specific Contraction Duration (sec): 40-70 Contraction Frequency (min): 2-5 Contraction Intensity: Moderate to Strong Movement: Active Heart Tones: Present Heart Rate (FHR) Variability: Moderate (6-25 bmp) Presentation: Vertex Estimated Weight: 7 pounds - Woodruff Score Woodruff Score Cervix Position: Anterior Woodruff Score Consistency: Soft Woodruff Score Effacement: >80% Woodruff Score Dilation: 3-4 cm Woodruff Score 's Station: -1 ,0 Woodruff Score Total: 11 - Exam General: Alert, Oriented HEENT: PERRLA, Conjunctiva Clear, EACs Clear, EOMI, Hearing Intact, Mucosa Moist & Scissors, Nares Patent, Normal Nasal Septum, Posterior Pharynx Clear, TMs Clear Neck: Supple, Trachea Midline Lungs: Clear to Auscultation, Normal Respiratory Effort Cardiovascular: Regular Rate, Regular Rhythm GI/Abdominal Exam: Normal Bowel Sounds, Soft, Non-Tender, No Organomegaly, No Distention, No Abnormal Bruit, No Mass, Pelvis Stable Rectal Exam: Normal Exam, Normal Rectal Tone Genitourinary: Normal external exam, Normal bimanual exam, Normal speculum exam Back Exam: Normal Inspection, Full Range of Motion Extremities: Normal Inspection, Normal Range of Motion, Non-Tender, No Pedal Edema, Normal Capillary Refill Skin: Warm, Dry, Intact Neurological: Cranial Nerves Intact, Reflexes Equal Bilateral Psychiatric: Alert, Normal Affect, Normal Mood - Patient Data Lab Results Last 24 hrs: Laboratory Results - last 24 hr 03/04/17 03/04/17 03/04/17 Range/Units 22:54 22:58 23:25 WBC 11.4 H (4.5-11.0) K/uL RBC 4.14 (3.30-5.50) M/uL Hgb 10.9 L (12.0-15.0) g/dL Hct 33.9 L (36.0-48.0) % MCV 82 (80-98) fL MCH 26 L (27-31) pg MCHC 32 (32-36) % Plt Count 345 (150-400) K/uL Urine Color Yellow Urine Appearance Clear Urine pH 6.0 (4.5-8.0) Ur Specific [place] 1.015 (1.008-1.030) Urine Protein Negative (NEGATIVE) mg/dL Urine Glucose (UA) Normal (NEGATIVE) mg/dL Urine Ketones Negative (NEGATIVE) mg/dL Urine Occult Blood Negative (NEGATIVE) Urine Nitrite Negative (NEGATIVE) Urine Bilirubin Negative (NEGATIVE) Urine Urobilinogen Normal (NORMAL) mg/dL Ur Leukocyte Esterase Negative (NEGATIVE) Urine RBC 0-5 (0-5) Urine WBC 0-5 (0-5) Ur Epithelial Cells Many Amorphous Sediment Not seen Urine Bacteria Not seen Urine Mucus Few Urine Opiates Screen Negative (NEGATIVE) Ur Oxycodone Screen Negative (NEGATIVE) Urine Methadone Screen Negative (NEGATIVE) Ur Propoxyphene Screen Negative (NEGATIVE) Ur Barbiturates Screen Negative (NEGATIVE) Ur Tricyclics Screen Negative (NEGATIVE) Ur Phencyclidine Scrn Negative (NEGATIVE) Ur Amphetamine Screen Negative (NEGATIVE) U Methamphetamines Scrn Negative (NEGATIVE) Urine MDMA Screen Negative (NEGATIVE) U Benzodiazepines Scrn Negative (NEGATIVE) U Cocaine Metab Screen Negative (NEGATIVE) U Marijuana (THC) Screen Negative (NEGATIVE) Result Diagrams: 03/04/17 22:58 - Problem List (1) Active labor at term SNOMED Code(s): 38530960 ICD Code: [id number] - Status: Acute Current Visit: Yes (2) Intrauterine SNOMED Code(s): 02174849 ICD Code: Z33.1 - STATE, INCIDENTAL Status: Acute Current Visit : No Problem List Initiated/Reviewed/Updated: Yes Orders Last 24hrs: Active Orders 24 hr Category Date Time Status Patient Status [ADT] Routine ADT 03/05/17 00:41 Ordered Antiembolic Devices [RC] .Routine Care 03/05/17 00:44 Ordered Communication Order [RC] ASDIRECTED Care 03/05/17 00:41 Ordered Heart Tones [RC] PER UNIT ROUTINE Care 03/05/17 00:41 Ordered Local Anesthetic Infusion Pump [RC] ASDIRECTED Care 03/04/17 23:35 Active May Shower [RC] ASDIRECTED Care 03/05/17 00:41 Ordered Notify Provider Vital Signs [RC] PRN Care 03/05/17 00:41 Ordered Notify Provider [RC] PRN Care 03/05/17 00:41 Ordered OB Check [OM.PC] Click to Edit Care 03/04/17 22:55 Ordered PCEA Epidural [RC] ASDIRECTED Care 03/04/17 23:35 Active Up ad Stephanie [RC] ASDIRECTED Care 03/05/17 00:41 Ordered VTE/DVT Education [RC] Click to Edit Care 03/05/17 00:44 Ordered Vital Signs [RC] PER UNIT ROUTINE Care 03/05/17 00:41 Ordered Acetaminophen [Tylenol] Med 03/05/17 00:41 Ordered 650 mg PO Q4H PRN Ondansetron [Zofran ODT] Med 03/05/17 00:41 Ordered 4 mg PO Q4H PRN Oxytocin/Normal Saline [Pitocin in NS 20 Units/1,000 ML Med 03/05/17 00:45 Active ] 20 unit in 1,000 ml IV TITRATE Sodium Chloride 0.9% [Saline Flush] Med 03/05/17 00:41 Ordered 10 ml FLUSH ASDIRECTED PRN DVT/VTE Prophylaxis Reflex [OM.PC] Routine Oth 03/05/17 00:41 Ordered Epidural Catheter Management [OM.PC] Routine Oth 03/04/17 23:35 Ordered Saline Lock Insert [OM.PC] Routine Oth 03/05/17 00:41 Ordered Resuscitation Status Routine Resus Stat 03/05/17 00:41 Ordered Medication Orders Oxytocin/Sodium Chloride (Pitocin In Ns 20 Units/1,000 Ml) 20 unit in 1,000 mls @ 2,997 mls/hr IV TITRATE ARCELIA; 999 MUNITS/MIN PRN Reason: Protocol Assessment/Plan Comment:: 03/05/17 41 year old presents in active labor 39 1/7 weeks gestation , Italian speaking epidural for pain control plan for vaginal delivery.
[2017-03-05] MEDS ORDERED: Ropivacaine 200 MG in Premix Bag 1 BAG EPIDUR SCH (01:15)
--- NOTE | 2017-03-05 01:20 | PCM.PNLD ---
Labor Progress Note - VS & Meds Vital Signs: Last Vital Signs Temp 98.4 F 03/04/17 23:01 Pulse 71 03/04/17 23:01 Resp 18 03/04/17 23:01 BP 127/61 03/04/17 23:01 Pulse Ox Active Medications: Current Medications Acetaminophen (Tylenol) 650 mg PO Q4H PRN PRN Reason: Pain (Mild 1-3) and fever Oxytocin/Sodium Chloride (Pitocin In Ns 20 Units/1,000 Ml) 20 unit in 1,000 mls @ 2,997 mls/hr IV TITRATE ARCELIA; 999 MUNITS/MIN PRN Reason: Protocol Ropivacaine 200 mg/ Premix 100 mls @ 12 mls/hr EPIDUR ASDIRECTED ARCELIA Ondansetron HCl (Zofran Odt) 4 mg PO Q4H PRN PRN Reason: Nausea/Vomiting Sodium Chloride (Saline Flush) 10 ml FLUSH ASDIRECTED PRN PRN Reason: Keep Vein Open Discontinued Medications Fentanyl (Sublimaze) Confirm Administered Dose 100 mcg .ROUTE .STK-MED ONE Stop: 03/05/17 00:38 Last Admin: 03/05/17 00:54 Dose: Not Given Fentanyl (Sublimaze) 100 mcg IVPUSH ONETIME ONE Stop: 03/05/17 00:44 Last Admin: 03/05/17 00:43 Dose: 100 mcg Sodium Chloride (Normal Saline) 1,000 mls @ 999 mls/hr IV ONETIME ONE Stop: 03/05/17 00:35 Last Admin: 03/05/17 00:36 Dose: 999 mls/hr Lactated Ringer's (Ringers, Lactated) 1,000 mls @ 999 mls/hr IV ONETIME ONE Stop: 03/05/17 00:35 Last Admin: 03/05/17 00:35 Dose: Not Given Oxytocin/Sodium Chloride (Pitocin In Ns 20 Units/1,000 Ml) Confirm Administered Dose 20 unit in 1,000 mls @ as directed .ROUTE .STK-MED ONE Stop: 03/05/17 00:38 Last Admin: 03/05/17 00:54 Dose: Not Given Ropivacaine (Naropin 0.2%) Confirm Administered Dose 100 mls @ as directed .ROUTE .STK-MED ONE Stop: 03/05/17 00:41 - Uterine Contractions Uterine Monitoring Mode: External [place] Contraction Frequency (min): 2-5 Contraction Duration (sec): 40-70 Contraction Intensity: Moderate to Strong Uterine Resting Tone: Soft - Monitoring Monitor Mode: Doppler/Auscultation Heart Rate (FHR) Per Doppler: 130 Heart Rate (FHR) Variability: Moderate (6-25 bmp) Accelerations: Present, 15x15 Decelerations: None Strip Review: Category I - Vaginal Exam Dilation (cm): 7-8 Effacement (Percent): 100 Station: 0 Cervical Position: Anterior Sterile Vaginal Exam Performed By: Jackie Colbert Vaginal Exam Comment: AROM large amount clear fluid - Labor Progress (Free Text) Labor Progress: 03/05/17 active labor Epidural in place and working well AROM at 0115 large amount clear fluid CE 7-8/100/0 head down crooks inserted. Plan for vaginal
--- NOTE | 2017-03-05 01:58 | ANES ---
DATE OF SERVICE: 03/05/2017 INDICATIONS: Mrs. Humza Shay is a 41-year-old female, up in the OB department. She is an active labor and would like a labor epidural. She does not speak in [place]an, so we went ahead and gave her all the information and risks, benefits through the steam table worker. All her questions were answered and she agreed to have a labor epidural. DESCRIPTION OF THE PROCEDURE: I placed her in a sitting position. Her back was prepped x3 with Betadine 1% lidocaine skin local was used. The epidural was placed at L3-L4 using a 17- gauge Tuohy needle in loss of resistance technique. The epidural had very good feel throughout and the epidural space was easily identified. There was negative CSF, negative blood, and negative paresthesias noted. Therefore, a catheter was threaded to 12 cm at the skin. There was negative CSF, negative blood, and negative paresthesias with the catheter. Therefore, a test dose of 1.5% lidocaine with epinephrine was given. This test dose was negative. The catheter was then secured with Tegaderm and tape and the patient was placed in the supine position. Her vital signs remained stable and she got good pain relief after the initial bolus, therefore a 0.2% ropivacaine drip was started at 12 mL/h. She got an initial bolus of 0.2% ropivacaine of 10 mL. Her vital signs remained stable throughout the procedure and we will continue to monitor her throughout her Labor and Delivery stay. Stefan Oh CRNA /[id number]
[2017-03-05] MEDS ORDERED: Acetaminophen/Codeine 300-30 MG Tab PO PRN (03:03)
--- NOTE | 2017-03-05 03:12 | PCM.DEL ---
L & D Note - General Info Date of Service: 03/05/17 (delivery) Mother's Due Date: 03/10/17 - Delivery Note Labor: Spontaneous Delivery Outcome: Livebirth Infant Delivery Method: Spontaneous Vaginal Delivery-Single Infant Delivery Mode: Spontaneous Presentation: Vertex Nuchal Cord: None Anesthesia Type: Epidural Amniotic Fluid Description: Clear Episiotomy Type: None Laceration: None Placenta: Intact, Spontaneous Cord: 3 Vessels Estimated Blood Loss: 0 Resuscitation Needed: No [place]: Stimulated, Warmed, [place] Used Provider: Jackie Colbert Score 1 min: 9 Score 5 min: 10 Score 10 min: 10 Second Stage Interventions: Reports: Pushing Effectively Delivery Comments (Free Text/Narrative):: 03/05/17 This 41 year old G5 now P5 who is 39 1/7 weeks gestation delivered via a viable female in LAUREN position. Mother once twice and baby was born over an intact perineum. She was pink and crying at delivery She was placed on mother 's abdomen where she was dried and stimulated. Apgars 9,10,10. Three vessel cord. The placenta was expressed spontaneously intact. No lacerations were found of the cervix, vagina, rectum or perineum. EBL zero Mother and baby to post and nursery in stable condition. Weight 7-3 First stage 5695-9279 Second stage 7317-4618 Third stage [id number] - General Info Date of Service: 03/05/17 Admission Dx/Problem (Free Text): Patient Status Order with Admit Dx/Problem 03/05/17 00:41 Patient Status [ADT] Routine Admission Diagnosis/Problem Admission Diagnosis/Problem and not yet delivered Functional Status: Reports: Pain Controlled - Review of Systems General: Reports: No Symptoms HEENT: Reports: No Symptoms Pulmonary: Reports: No Symptoms Cardiovascular: Reports: No Symptoms Gastrointestinal: Reports: No Symptoms Genitourinary: Reports: No Symptoms Musculoskeletal: Reports: No Symptoms Skin: Reports: No Symptoms Neurological: Reports: No Symptoms Psychiatric: Reports: No Symptoms - Patient Data Vitals - Most Recent: Last Vital Signs Temp 98.4 F 03/04/17 23:01 Pulse 68 03/05/17 01:58 Resp 16 03/05/17 01:30 BP 100/63 03/05/17 01:58 Pulse Ox 97 03/05/17 01:58 Weight - Most Recent: 154 lb Lab Results Last 24 Hours: Laboratory Results - last 24 hr 03/04/17 03/04/17 03/04/17 Range/Units 22:54 22:58 23:25 WBC 11.4 H (4.5-11.0) K/uL RBC 4.14 (3.30-5.50) M/uL Hgb 10.9 L (12.0-15.0) g/dL Hct 33.9 L (36.0-48.0) % MCV 82 (80-98) fL MCH 26 L (27-31) pg MCHC 32 (32-36) % Plt Count 345 (150-400) K/uL Urine Color Yellow Urine Appearance Clear Urine pH 6.0 (4.5-8.0) Ur Specific [place] 1.015 (1.008-1.030) Urine Protein Negative (NEGATIVE) mg/dL Urine Glucose (UA) Normal (NEGATIVE) mg/dL Urine Ketones Negative (NEGATIVE) mg/dL Urine Occult Blood Negative (NEGATIVE) Urine Nitrite Negative (NEGATIVE) Urine Bilirubin Negative (NEGATIVE) Urine Urobilinogen Normal (NORMAL) mg/dL Ur Leukocyte Esterase Negative (NEGATIVE) Urine RBC 0-5 (0-5) Urine WBC 0-5 (0-5) Ur Epithelial Cells Many Amorphous Sediment Not seen Urine Bacteria Not seen Urine Mucus Few Urine Opiates Screen Negative (NEGATIVE) Ur Oxycodone Screen Negative (NEGATIVE) Urine Methadone Screen Negative (NEGATIVE) Ur Propoxyphene Screen Negative (NEGATIVE) Ur Barbiturates Screen Negative (NEGATIVE) Ur Tricyclics Screen Negative (NEGATIVE) Ur Phencyclidine Scrn Negative (NEGATIVE) Ur Amphetamine Screen Negative (NEGATIVE) U Methamphetamines Scrn Negative (NEGATIVE) Urine MDMA Screen Negative (NEGATIVE) U Benzodiazepines Scrn Negative (NEGATIVE) U Cocaine Metab Screen Negative (NEGATIVE) U Marijuana (THC) Screen Negative (NEGATIVE) Med Orders - Current: Current Medications Acetaminophen (Tylenol) 650 mg PO Q4H PRN PRN Reason: Pain (Mild 1-3) and fever Oxytocin/Sodium Chloride (Pitocin In Ns 20 Units/1,000 Ml) 20 unit in 1,000 mls @ 2,997 mls/hr IV TITRATE ARCELIA; 999 MUNITS/MIN PRN Reason: Protocol Ropivacaine 200 mg/ Premix 100 mls @ 12 mls/hr EPIDUR ASDIRECTED [facility] Ondansetron HCl (Zofran Odt) 4 mg PO Q4H PRN PRN Reason: Nausea/Vomiting Sodium Chloride (Saline Flush) 10 ml FLUSH ASDIRECTED PRN PRN Reason: Keep Vein Open Discontinued Medications Fentanyl (Sublimaze) Confirm Administered Dose 100 mcg .ROUTE .STK-MED ONE Stop: 03/05/17 00:38 Last Admin: 03/05/17 00:54 Dose: Not Given Fentanyl (Sublimaze) 100 mcg IVPUSH ONETIME ONE Stop: 03/05/17 00:44 Last Admin: 03/05/17 00:43 Dose: 100 mcg Sodium Chloride (Normal Saline) 1,000 mls @ 999 mls/hr IV ONETIME ONE Stop: 03/05/17 00:35 Last Admin: 03/05/17 00:36 Dose: 999 mls/hr Lactated Ringer's (Ringers, Lactated) 1,000 mls @ 999 mls/hr IV ONETIME ONE Stop: 03/05/17 00:35 Last Admin: 03/05/17 00:35 Dose: Not Given Oxytocin/Sodium Chloride (Pitocin In Ns 20 Units/1,000 Ml) Confirm Administered Dose 20 unit in 1,000 mls @ as directed .ROUTE .STK-MED ONE Stop: 03/05/17 00:38 Last Admin: 03/05/17 00:54 Dose: Not Given Ropivacaine (Naropin 0.2%) Confirm Administered Dose 100 mls @ as directed .ROUTE .STK-MED ONE Stop: 03/05/17 00:41 - Exam General: Alert, Oriented HEENT: Pupils Reactive Neck: Supple Lungs: Clear to Auscultation, Normal Respiratory Effort Cardiovascular: Regular Rate, Regular Rhythm GI/Abdominal Exam: Normal Bowel Sounds, Non-Tender (Female) Exam: Normal External Exam, Enlarged Uterus, Vaginal Bleeding Back Exam: Normal Inspection, Full Range of Motion Extremities: Normal Inspection, Normal Range of Motion, Non-Tender, No Pedal Edema, Normal Capillary Refill Skin: Warm, Dry, Intact Neurological: No New Focal Deficit Psy/Mental Status: Alert, Normal Affect, Normal Mood - Problem List & Annotations (1) Active labor at term SNOMED Code(s): 43544546 Code(s): VKF5176 - Status: Acute Current Visit: Yes (2) Intrauterine SNOMED Code(s): 92849579 Code(s): Z33.1 - STATE, INCIDENTAL Status: Acute Current Visit: No (3) SNOMED Code(s): 84961688 Code(s): Z34.90 - ENCNTR FOR SUPRVSN OF NORMAL , UNSP, UNSP TRIMESTER Status: Acute Current Visit: Yes Qualifiers: Weeks of gestation: 39 weeks Qualified Code(s): Z3A.39 - 39 weeks gestation of - Problem List Review Problem List Initiated/Reviewed/Updated: Yes - My Orders Last 24 Hours: My Active Orders 03/04/17 22:55 OB Check [OM.PC] Click to Edit 03/04/17 23:35 Local Anesthetic Infusion Pump [RC] ASDIRECTED PCEA Epidural [RC] ASDIRECTED Epidural Catheter Management [OM.PC] Routine 03/05/17 00:41 Communication Order [RC] ASDIRECTED May Shower [RC] ASDIRECTED Notify Provider Vital Signs [RC] PRN Notify Provider [RC] PRN Up ad Stephanie [RC] ASDIRECTED Vital Signs [RC] PER UNIT ROUTINE Acetaminophen [Tylenol] 650 mg PO Q4H PRN Ondansetron [Zofran ODT] 4 mg PO Q4H PRN Sodium Chloride 0.9% [Saline Flush] 10 ml FLUSH ASDIRECTED PRN DVT/VTE Prophylaxis Reflex [OM.PC] Routine Saline Lock Insert [OM.PC] Routine Resuscitation Status Routine 03/05/17 00:44 Antiembolic Devices [RC] .Routine VTE/DVT Education [RC] Click to Edit 03/05/17 00:45 Oxytocin/Normal Saline [Pitocin in NS 20 Units/1,000 ML] 20 unit in 1,000 ml IV TITRATE 03/05/17 01:07 Urinary Catheter Assessment [RC] ASDIRECTED 03/05/17 01:15 Insert Gracia Catheter [Insert Urinary Catheter] [OM.PC] Q24H Ropivacaine [Naropin 0.2%] 200 mg Premix Bag 1 bag EPIDUR ASDIRECTED 03/05/17 03:03 Patient Status [ADT] Routine Vital Signs [RC] PFP Acetaminophen/Codeine [Tylenol with Codeine No.3 300MG/30MG] 1 tab PO Q4H PRN Ibuprofen [Motrin] 600 mg PO Q6H PRN Assess Uterine Involution [WOMSER] Per Unit Routine 03/05/17 03:04 Perineal Care [OM.PC] Per Unit Routine Peripheral IV Discontinue [OM.PC] Routine Sitz Bath [OM.PC] Per Unit Routine 03/05/17 05:11 CBC WITH AUTO DIFF [HEME] AM 03/05/17 08:00 Ferrous Sulfate 325 mg PO WITHBREAKFAST 03/05/17 Breakfast Regular Diet [DIET] - Assessment Assessment:: 03/05/17 41 year old 39 1/7 weeks gestation delivered via without complications. Labs HGB 10.9, PLT 345, Rubella immune, GBS neg, ABO O pos, HIV neg bottle feeding baby - Plan Plan:: 03/05/17 41 year old presents in active labor 39 1/7 weeks gestation , Sinhala speaking epidural for pain control plan for vaginal delivery. 03/05/17 Routine cares 24-48 hour stay CBC in AM Iron supplement ordered to start at breakfast
[2017-03-05] MEDS: Ibuprofen 600 MG Tab PO PRN ×3 (04:36→20:00)
[2017-03-05] MEDS: Ferrous Sulfate 325 MG Tab PO SCH (10:07)
[2017-03-06] MEDS: Ibuprofen 600 MG Tab PO PRN ×2 (01:53→08:05)
--- NOTE | 2017-03-06 07:09 | PCM.PNPP ---
- General Info Date of Service: 03/06/17 Functional Status: Reports: Pain Controlled - Review of Systems General: Reports: No Symptoms HEENT: Reports: No Symptoms Pulmonary: Reports: No Symptoms Cardiovascular: Reports: No Symptoms Gastrointestinal: Reports: No Symptoms Genitourinary: Reports: No Symptoms Musculoskeletal: Reports: No Symptoms Skin: Reports: No Symptoms Neurological: Reports: No Symptoms Psychiatric: Reports: No Symptoms - General Info Date of Service: 03/06/17 - Patient Data Vital Signs - Most Recent: Last Vital Signs Temp 37.0 C 03/06/17 03:36 Pulse 62 03/06/17 03:36 Resp 16 03/06/17 03:36 BP 103/61 03/06/17 03:36 Pulse Ox 98 03/06/17 03:36 Weight - Most Recent: 69.853 kg I&O - Last 24 Hours: Intake & Output 03/05/17 03/06/17 03/06/17 22:59 06:59 14:59 Intake Total 600 Balance 600 Med Orders - Current: Current Medications Acetaminophen (Tylenol) 650 mg PO Q4H PRN PRN Reason: Pain (Mild 1-3) and fever Acetaminophen/Codeine Phosphate (Tylenol With Codeine No.3 300mg/30mg) 1 tab PO Q4H PRN PRN Reason: Pain (moderate 4-6) Ferrous Sulfate (Ferrous Sulfate) 325 mg PO WITHBREAKFAST ARCELIA Last Admin: 03/05/17 10:07 Dose: 325 mg Oxytocin/Sodium Chloride (Pitocin In Ns 20 Units/1,000 Ml) 20 unit in 1,000 mls @ 2,997 mls/hr IV TITRATE ARCELIA; 999 MUNITS/MIN PRN Reason: Protocol Last Admin: 03/05/17 02:39 Dose: 999 munits/min, 2,997 mls/hr Ropivacaine 200 mg/ Premix 100 mls @ 12 mls/hr EPIDUR ASDIRECTED ARCELIA Last Admin: 03/05/17 00:30 Dose: 12 mls/hr Ibuprofen (Motrin) 600 mg PO Q6H PRN PRN Reason: mild pain or fever Last Admin: 03/06/17 01:53 Dose: 600 mg Ondansetron HCl (Zofran Odt) 4 mg PO Q4H PRN PRN Reason: Nausea/Vomiting Sodium Chloride (Saline Flush) 10 ml FLUSH ASDIRECTED PRN PRN Reason: Keep Vein Open Discontinued Medications Fentanyl (Sublimaze) Confirm Administered Dose 100 mcg .ROUTE .STK-MED ONE Stop: 03/05/17 00:38 Last Admin: 03/05/17 00:54 Dose: Not Given Fentanyl (Sublimaze) 100 mcg IVPUSH ONETIME ONE Stop: 03/05/17 00:44 Last Admin: 03/05/17 00:43 Dose: 100 mcg Sodium Chloride (Normal Saline) 1,000 mls @ 999 mls/hr IV ONETIME ONE Stop: 03/05/17 00:35 Last Admin: 03/05/17 00:36 Dose: 999 mls/hr Lactated Ringer's (Ringers, Lactated) 1,000 mls @ 999 mls/hr IV ONETIME ONE Stop: 03/05/17 00:35 Last Admin: 03/05/17 00:35 Dose: Not Given Oxytocin/Sodium Chloride (Pitocin In Ns 20 Units/1,000 Ml) Confirm Administered Dose 20 unit in 1,000 mls @ as directed .ROUTE .STK-MED ONE Stop: 03/05/17 00:38 Last Admin: 03/05/17 00:54 Dose: Not Given Ropivacaine (Naropin 0.2%) Confirm Administered Dose 100 mls @ as directed .ROUTE .STK-MED ONE Stop: 03/05/17 00:41 - Interaction Infant Disposition, : at Bedside Infant Interaction: Holding Infant Infant Feeding: Bottle Fed Infant Support Person: Friend - Recovery Exam Fundal Tone: Firm Fundal Level: At Umbilicus Fundal Placement: Midline Lochia Amount: Small Lochia Color: Rubra/Red Perineum Description: Intact, Minimal Bruising/Swelling Episiotomy/Laceration: None Urinary Elimination: Voided - Exam General: Alert, Oriented HEENT: Pupils Equal Neck: Supple Lungs: Clear to Auscultation, Normal Respiratory Effort Cardiovascular: Regular Rate, Regular Rhythm GI/Abdominal Exam: Normal Bowel Sounds, Soft, Non-Tender, No Organomegaly, No Distention, No Abnormal Bruit, No Mass, Pelvis Stable Extremities: Normal Inspection, Normal Range of Motion, Non-Tender, No Pedal Edema, Normal Capillary Refill Skin: Warm, Dry, Intact Neurological: No New Focal Deficit Psy/Mental Status: Alert, Normal Affect, Normal Mood - Problem List & Annotations (1) Vaginal delivery SNOMED Code(s): 731300766 Code(s): O80 - ENCOUNTER FOR FULL-TERM UNCOMPLICATED DELIVERY Status: Acute Current Visit: Yes - Problem List Review Problem List Initiated/Reviewed/Updated: Yes - Assessment Assessment:: 03/05/17 41 year old 39 1/7 weeks gestation delivered via without complications. Labs HGB 10.9, PLT 345, Rubella immune, GBS neg, ABO O pos, HIV neg bottle feeding baby 03/06/2017 Normal Vaginal Delivery Day One Fundus firm and bleeding decreasing Bottlefeeding - Plan Plan:: 03/05/17 41 year old presents in active labor 39 1/7 weeks gestation , Portuguese speaking epidural for pain control plan for vaginal delivery. 03/05/17 Routine cares 24-48 hour stay CBC in AM Iron supplement ordered to start at breakfast 03/06/2017 Continue routine cares To see me for visit in 6 weeks Discharge home today per mothers request
[2017-03-06 07:35] VITALS: BP 115/69
[2017-03-06] MEDS: Ferrous Sulfate 325 MG Tab PO SCH (10:21)
[2017-03-06] MEDS ORDERED: Acetaminophen 325 MG Tab, 50 Tab Bulk Bottle PO PRN (10:59)
[2017-03-06] MEDS ORDERED: Ibuprofen 200 MG Tab, 24 Tab Bulk Bottle PO PRN (11:00)
== END 2017-03-06 12:00 | disposition home or self-care (01) | DRG 775 ==
LOC: JP.OBCHECK 22:47 → JP.OB 23:45 → OBSVTOIN 03-05 02:39 → JP.MS 03-05 02:39
PROVIDERS: ADMIT Nurse Practitioner Family; ATTEND Nurse Practitioner Family
PROC: 10E0XZZ Delivery of Products of Conception, External Approach (ICD-10-PCS; principal; 2017-03-05)
PROC: 10907ZC Drainage of Amniotic Fluid, Therapeutic from Products of Conception, Via Natural or Artificial Opening (ICD-10-PCS; 2017-03-05)
PROC: 00HU33Z Insertion of Infusion Device into Spinal Canal, Percutaneous Approach (ICD-10-PCS; 2017-03-05)
DX: O80 Encounter for full-term uncomplicated delivery (principal); Z3A.39 39 weeks gestation of pregnancy; Z37.0 Single live birth
CPT/HCPCS: 36415; 59409; 80305; 81001; 85025; 85027; 99211; A9270-GY; J2590; J2795; J3010; J7040

== ENCOUNTER 2022-09-30 12:48 | Emergency (ER) | payer BC, MEDICAID ==
[2022-09-30 15:28] VITALS: BP 143/85; PULSE 64
[2022-09-30] MEDS ORDERED: Acetaminophen/HYDROcodone 325-5 MG Tab PO ONE (15:32)
== END 2022-09-30 17:57 | disposition home or self-care (01) ==
LOC: JP.ED 12:48
DX: S93.602A Unspecified sprain of left foot, initial encounter (principal); W10.8XXA Fall (on) (from) other stairs and steps, initial encounter; Y92.009 Unspecified place in unspecified non-institutional (private) residence as the place of occurrence of the external cause
CPT/HCPCS: 73630; 99283; A9270